=== PATIENT | male | born 1995 | race Caucasian/White ===

== ENCOUNTER 2017-04-30 05:30 | Emergency (ER) | payer BC, MEDICAID ==
[~2017-04-30] VITALS: Ht 167.6 cm; Wt 70.3 kg
[~2017-04-30 05:30] MED LIST: ALBU0.0939; MONT10TA35
[2017-04-30 05:35] VITALS: BP 132/77
--- NOTE | 2017-04-30 05:39 | NUR ---
PT AMBULATED TO ER BED 10
--- NOTE | 2017-04-30 05:55 | NUR ---
21 Y/O M W/C/O L EAR PAIN X THIS AM. NO OTHER S/S OF DISTRESS NOTED. ER MADE AWARE.
[2017-04-30] MEDS ORDERED: KETOROLAC 60 MG/2 ML VIAL IM ONE (06:20)
--- NOTE | 2017-04-30 06:20 | NUR ---
TAZ BAKER AT BEDSIDE EVALUATING PT.
[2017-04-30 07:00] VITALS: BP 114/72
--- NOTE | 2017-04-30 07:00 | NUR ---
Patient discharged with v/s stable. Written and verbal after care instructions given and explained. Patient alert, oriented and verbalized understanding of instructions. Ambulatory with steady gait. All questions addressed prior to discharge. ID band removed. Patient advised to follow up with PMD. Rx of IBUPROFEN, CIPRODEX, AND AMOXICILLIN given. Patient educated on indication of medication including possible reaction and side effects. Opportunity to ask questions provided and answered.
== END 2017-04-30 07:00 | disposition home or self-care (01) ==
LOC: MED 05:30
DX: H66.91 Otitis media, unspecified, right ear (principal); J45.909 Unspecified asthma, uncomplicated; Z79.899 Other long term (current) drug therapy
CPT/HCPCS: 96372; 99283; J1885